=== PATIENT | female | born 1960 | race African-American/Black ===

== ENCOUNTER 2016-11-24 14:23 | Emergency (ER) | payer MEDICAID ==
[~2016-11-24] VITALS: Ht 167.6 cm; Wt 81.0 kg
[2016-11-24] MEDS ORDERED: KETOROLAC 60MG/2ML VIAL IM ONE (15:15)
[2016-11-24 15:52] LABS: BASOPHILS % 0.4 % (0.0-2.0); DIFFERENTIAL COMMENT 0; EOSINOPHILS % 1.3 % (0.0-5.0); HEMATOCRIT. 41.6 % (36.0-48.0); HEMOGLOBIN. 13.4 g/dL (12.0-16.0); LYMPHOCYTES % 16.5 % (20.0-50.0); MEAN CORPUSCULAR HEMOGLOBIN 24.4 pg (28.0-32.0); MEAN CORPUSCULAR HGB CONC 32.3 g/dL (31.0-37.0); MEAN CORPUSCULAR VOLUME 75.7 fL (81.0-99.0); MEAN PLATELET VOLUME 8.6 fl (7.4-10.4); MONOCYTES % 10.9 % (2.0-8.0); NEUTROPHILS % 70.9 % (40.0-76.0); PLATELET 203 x1000/uL (130-400); WHITE BLOOD COUNT 7.2 x1000/uL (4.5-11.0)
[2016-11-24 16:11] LABS: HCG SCREEN POSITIVE
[2016-11-24] MEDS ORDERED: CLINDAMYCIN 300 MG in DEXTROSE 5% WATER 50 ML IV ONE (17:00)
[2016-11-24] MEDS ORDERED: CLINDAMYCIN PHOSPHATE 300MG/2ML VIAL IM NR (17:30)
[2016-11-24 18:00] VITALS: BP 155/76
== END 2016-11-24 18:14 | disposition home or self-care (01) ==
LOC: ER 14:24
DX: L73.0 Acne keloid (principal); L03.818 Cellulitis of other sites; Z90.710 Acquired absence of both cervix and uterus
CPT/HCPCS: 36415; 70486; 70490; 84703; 85025; 96372; 99285; J1885; J3490; Z7610; J7060

== ENCOUNTER 2017-03-11 12:30 | Emergency (ER) | payer MEDICAID ==
[~2017-03-11] VITALS: Ht 167.6 cm; Wt 83.0 kg
[2017-03-11 17:00] VITALS: BP 155/88
[2017-03-11] MEDS ORDERED: KETOROLAC 60MG/2ML VIAL IM ONE (17:00)
== END 2017-03-11 17:50 | disposition home or self-care (01) ==
LOC: ER 15:39
DX: M79.652 Pain in left thigh (principal); W22.09XA Striking against other stationary object, initial encounter; Y93.89 Activity, other specified; Y92.199 Unspecified place in other specified residential institution as the place of occurrence of the external cause; Y99.8 Other external cause status
CPT/HCPCS: 73552; 96372; 99284; J1885